=== PATIENT | male | born 1975 | race Caucasian/White ===

== ENCOUNTER 2019-06-20 11:15 | Outpatient (REF) | payer BC, SELFPAY ==
[2019-06-20 21:44] LABS: HCT 44.3 % (40.0-50.0); HGB 14.9 g/dL (13.5-17.5); Mean Corp. HGB Concentration 33.6 g/dL (32.0-36.0); Mean Corpuscular Hemoglobin 31.6 pg (27.0-33.0); Mean Corpuscular Volume 94.1 fL (80-95); Mean Platelet Volume 11.2 fL (8.0-11.0); Platelet Count 228 x1000/uL (130-400); RBC 4.71 m/cumm (4.50-6.00); RBC Distribution Width 12.9 % (11.8-14.1)
[2019-06-20 22:10] LABS: Hemoglobin A1C 5.9 % (3.8-5.6)
[2019-06-20 22:16] LABS: ALT 62 U/L (16-63); AST 22 U/L (15-37); Alkaline Phosphatase 55 U/L (46-116); Anion Gap 11.2 mmol/L (3-11); BUN 19 mg/dL (7-18); Bilirubin, Total 0.5 mg/dL (0.2-1.0); CO2 24.8 mmol/L (21.0-32.0); CREATININE 0.88 mg/dL (0.70-1.30); Calcium 9.1 mg/dL (8.5-10.1); Calculated LDL 187 mg/dL (<100); Chloride 106 mmol/L (98-107); Cholesterol 254 mg/dL (<200); Glucose 98 mg/dL (74-106); HDL Cholesterol 25 mg/dL (40-60); Potassium 4.3 mmol/L (3.5-5.1); Sodium 142 mmol/L (136-145); TSH (W/Ref FT4) 1.42 uIU/mL (0.36-3.74); Total Protein 7.1 g/dL (6.4-8.2); Triglyceride 214 mg/dL (<150)
== END 2019-06-20 11:35 ==
LOC: NCHCN 11:15
PROVIDERS: PCP Nurse Practitioner Family; Visit Provider Nurse Practitioner Family
DX: R00.2 Palpitations (principal); Z13.1 Encounter for screening for diabetes mellitus; Z13.220 Encounter for screening for lipoid disorders
CPT/HCPCS: 80053; 80061; 85027; 83036; 83735; 84443